=== PATIENT | male | born 1985 | race Caucasian/White ===

== ENCOUNTER 2024-03-13 19:55 | Emergency (ER) | payer OTHER ==
[~2024-03-13] VITALS: Ht 185.4 cm; Wt 80.3 kg
[2024-03-13] MEDS ORDERED: LACTATED RINGER'S 1,000 ML IV ONE (20:00)
[2024-03-13 20:11] LABS: BASOPHILS 0.4 % (0-2); EOSINOPHILS 1.3 % (0-6); HEMATOCRIT 44.3 % (35.0-50.0); HEMOGLOBIN 14.8 g/dL (12.0-18.0); LYMPHOCYTES 16.8 % (24-44); MCH 30.2 (27-36); MCHC 33.5 g/dl (30-36); MCV 90.3 fl (81-99); NEUTROPHILS 77.5 % (39-80); PLATELET COUNT 242 K/uL (140-440); RBC 4.91 M/ul (4.3-5.7); RDW 13.5 (10.5-15.0)
[2024-03-13 20:23] LABS: ALBUMIN 3.8 g/dL (3.4-5.0); ALBUMIN/GLOBULIN RATIO 1.19 (1.1-2.4); ALCOHOL, MEDICAL <3 ng/dL (<3); ALKALINE PHOSPHATASE 77 U/L (46-116); ALT (SGPT) 18 U/L (14-59); ANION GAP 12.8 (7-21); AST (SGOT) 15 U/L (15-37); BILIRUBIN, TOTAL 0.3 ng/dL (0.2-1.0); BUN/CREATININE RATIO 17.59 (6.0-28.6); CALCIUM 8.5 mg/dL (8.5-10.1); CARBON DIOXIDE 30 mmol/L (21-32); CHLORIDE 101 mmol/L (98-107); CREATINE KINASE 127 U/L (39-308); CREATININE, SERUM 1.08 mg/dL (0.70-1.30); GLOMERULAR FILTRATION RATE,EST 89 mL/min (>60); POTASSIUM 3.8 mmol/L (3.5-5.1); UREA NITROGEN 19 mg/dL (7-18)
[2024-03-13 20:41] LABS: ABO O
[2024-03-13 20:42] LABS: ANTIBODY SCREEN NEGATIVE; RH POSITIVE
[2024-03-13] MEDS ORDERED: CEFAZOLIN SODIUM 2 GM/20 ML SYR IV ONE (21:30)
[2024-03-13] MEDS ORDERED: AMOX TR-K CLV1 EAC1 PO (21:54)
[2024-03-13 22:24] VITALS: BP 137/99
== END 2024-03-13 22:24 | disposition home or self-care (01) ==
LOC: ED 19:55
PROVIDERS: Internal Medicine
DX: S82.844A Nondisplaced bimalleolar fracture of right lower leg, initial encounter for closed fracture (principal); S82.002A Unspecified fracture of left patella, initial encounter for closed fracture; S01.21XA Laceration without foreign body of nose, initial encounter; S01.81XA Laceration without foreign body of other part of head, initial encounter; V89.2XXA Person injured in unspecified motor-vehicle accident, traffic, initial encounter
CPT/HCPCS: 36415; 70450; 70486; 72125; 73560; 73610; 80053; 80307; 82553; 83690; 85025; 86850; 86900; 86901; 94799; 96374; 99284-25; G0480; J0690; J7121